=== PATIENT | male | born 1970 | race Caucasian/White ===

== ENCOUNTER 2022-01-23 09:48 | Inpatient (IN) | payer MEDICAID, OTHER ==
[~2022-01-23] VITALS: Ht 177.8 cm; Wt 132.0 kg
[2022-01-23 11:01] LABS: EOSINOPHILS % 0.3 % (0.0-5.0); HEMATOCRIT. 24.6 % (42.0-52.0); HEMOGLOBIN. 7.2 g/dL (14.0-18.0); LYMPHOCYTES % 11.3 % (20.0-50.0); MEAN CORPUSCULAR HEMOGLOBIN 20.8 pg (28.0-32.0); MEAN CORPUSCULAR VOLUME 70.7 fL (80.0-94.0); MEAN PLATELET VOLUME 9.9 fl (7.4-10.4); MONOCYTES % 14.3 % (2.0-8.0); NEUTROPHILS % 73.1 % (40.0-76.0); PLATELET 87 x1000/uL (130-400); RED BLOOD CELL COUNT 3.48 mill/uL (4.7-6.1); RED CELL DISTRIBUTION WIDTH 19.4 % (11.6-14.6)
[2022-01-23 11:04] LABS: CHLORIDE 100 mEq/L (98-107); CLARITY URINE CLOUDY (CLEAR); COLOR URINE ORANGE (YELLOW); KETONES URINE TRACE (NEGATIVE); LEUKOCYTE ESTERASE URINE 2+ (NEGATIVE); NITRITE URINE POSITIVE (NEGATIVE); OCCULT BLOOD URINE TRACE (NEGATIVE); PROTEIN URINE 2+ (NEGATIVE); SPECIFIC GRAVITY URINE 1.033 (1.005-1.030)
[2022-01-23 11:18] LABS: INR 1.1; PROTHROMBIN TIME 11.5 sec (9.6-11.0)
[2022-01-23] MEDS ORDERED: CEFTRIAXONE 1 G PREMIX 50 ML IV ONE (12:30)
[2022-01-23] MEDS: IBUPROFEN 200MG TABLET PO NR ×2 (14:10→18:37)
[2022-01-23] MEDS ORDERED: CLONIDINE 0.1MG TABLET PO PRN (14:30)
[2022-01-23] MEDS ORDERED: ONDANSETRON HCL 4MG/2ML INJ IV PRN (14:30)
[2022-01-23] MEDS ORDERED: ACETAMINOPHEN 325MG TABLET PO PRN (14:30)
[2022-01-23] MEDS ORDERED: CEFTRIAXONE 1 G PREMIX 50 ML IV SCH (14:30)
[2022-01-23] MEDS ORDERED: MAGNESIUM/ALUMINUM HYDROXIDE/SIMETHICONE 30ML UDC PO PRN (14:30)
[2022-01-23] MEDS ORDERED: DEXTROSE 50% WATER 50ML SYRINGE IV PRN ×2 (14:30)
[2022-01-23 16:00] VITALS: BP 104/67
[2022-01-23] MEDS ORDERED: PANTOPRAZOLE SODIUM 40 MG/VIAL IV SCH (17:00)
[2022-01-23] MEDS: BLOOD SUGAR DIAGNOSTIC STRIP TEST SCH ×2 (17:20→22:00)
[2022-01-23 18:24] LABS: TOTAL IRON BINDING CAPACITY 525 ug/dL (250-450)
[2022-01-23] MEDS: INSULIN LISPRO 100 UNITS/ML SUBCUT SCH ×2 (18:33→22:09)
[2022-01-23] MEDS: PANTOPRAZOLE SODIUM 40 MG/VIAL IV SCH (18:34)
[2022-01-23] MEDS: SODIUM CHLORIDE 0.9% 1,000 ML IV SCH (18:35)
[2022-01-23 18:41] LABS: FERRITIN 11 ng/mL (22-322)
[2022-01-23 18:50] LABS: FOLIC ACID (FOLATE) SERUM >20 ng/mL ng/mL (>5.38); VITAMIN B12 SERUM 490 pg/mL (211-911)
[2022-01-23 18:52] LABS: HEPATITIS B SURFACE ANTIGEN NEGATIVE
[2022-01-23] MEDS: OCTREOTIDE 1,000 MCG in SODIUM CHLORIDE 0.9% 98 ML IV SCH (19:41)
[2022-01-23 20:00] VITALS: BP 102/54
[2022-01-24] VITALS (15 sets, daily range): BP systolic 107–136; BP diastolic 63–92
[2022-01-24] MEDS: HYDROCODONE/ACETAMINOPHEN 5/325MG TABLET PO PRN (01:56)
[2022-01-24 03:29] LABS: HEMATOCRIT. 24.4 % (42.0-52.0); MEAN CORPUSCULAR HEMOGLOBIN 20.8 pg (28.0-32.0); MEAN CORPUSCULAR VOLUME 72.2 fL (80.0-94.0); MEAN PLATELET VOLUME 8.6 fl (7.4-10.4); PLATELET 68 x1000/uL (130-400); RED BLOOD CELL COUNT 3.38 mill/uL (4.7-6.1); RED CELL DISTRIBUTION WIDTH 19.4 % (11.6-14.6)
[2022-01-24 03:36] LABS: CHLORIDE 104 mEq/L (98-107)
[2022-01-24 03:43] LABS: PHOSPHORUS 2.6 mg/dL (2.5-4.9)
[2022-01-24 03:59] LABS: INR 1.1; PROTHROMBIN TIME 11.8 sec (9.6-11.0)
[2022-01-24] MEDS: SODIUM CHLORIDE 0.9% 1,000 ML IV SCH ×2 (04:23→17:10)
[2022-01-24] MEDS: BLOOD SUGAR DIAGNOSTIC STRIP TEST SCH ×4 (06:23→20:49)
[2022-01-24 07:02] LABS: ATYPICAL LYMPHOCYTES 2
[2022-01-24 07:03] LABS: PLATELET ESTIMATE DECREASED
[2022-01-24] MEDS: INSULIN LISPRO 100 UNITS/ML SUBCUT SCH ×4 (07:50→21:46)
[2022-01-24] MEDS: PANTOPRAZOLE SODIUM 40 MG/VIAL IV SCH ×2 (09:09→17:00)
[2022-01-24] MEDS: CEFTRIAXONE 1,000 MG in DEXTROSE 5% WATER 50 ML IV SCH (13:08)
[2022-01-24] MEDS ORDERED: NALOXONE HCL 0.4MG/ML VIAL IV PRN (15:45)
[2022-01-24] MEDS ORDERED: POTASSIUM CHLORIDE 20MEQ/PACKET PO NR (15:45)
[2022-01-24] MEDS: IRON SUCROSE COMPLEX 100 MG/5 ML ML IV SCH (22:29)
[2022-01-24] MEDS: OCTREOTIDE 1,000 MCG in SODIUM CHLORIDE 0.9% 98 ML IV SCH (22:29)
[2022-01-25 03:18] LABS: HEMATOCRIT. 27.2 % (42.0-52.0); HEMOGLOBIN. 8.2 g/dL (14.0-18.0); MEAN CORPUSCULAR HEMOGLOBIN 22.1 pg (28.0-32.0); MEAN CORPUSCULAR VOLUME 73.8 fL (80.0-94.0); MEAN PLATELET VOLUME 8.7 fl (7.4-10.4); PLATELET 71 x1000/uL (130-400); RED BLOOD CELL COUNT 3.69 mill/uL (4.7-6.1); RED CELL DISTRIBUTION WIDTH 20.6 % (11.6-14.6)
[2022-01-25 03:28] LABS: INR 1.1; PROTHROMBIN TIME 12.1 sec (9.6-11.0)
[2022-01-25 03:39] LABS: CHLORIDE 106 mEq/L (98-107)
[2022-01-25 03:44] LABS: PHOSPHORUS 2.3 mg/dL (2.5-4.9)
[2022-01-25 03:55] VITALS: BP_SYST 132
[2022-01-25 05:04] VITALS: BP 127/77
[2022-01-25] MEDS: BLOOD SUGAR DIAGNOSTIC STRIP TEST SCH ×4 (06:15→21:32)
[2022-01-25] MEDS: SODIUM CHLORIDE 0.9% 1,000 ML IV SCH (06:33)
[2022-01-25] MEDS ORDERED: LIDOCAINE HCL 1% 50ML VIAL (10MG/ML) ONE (07:50)
[2022-01-25] MEDS: INSULIN LISPRO 100 UNITS/ML SUBCUT SCH ×4 (07:50→21:44)
[2022-01-25 08:00] VITALS: BP 141/91
[2022-01-25] MEDS: PANTOPRAZOLE SODIUM 40 MG/VIAL IV SCH ×2 (09:51→18:51)
[2022-01-25] MEDS ORDERED: PROPOFOL 200MG/20ML VIAL IV ONE (12:13)
[2022-01-25] MEDS ORDERED: MIDAZOLAM HCL 2 MG/2 ML VIAL ONE (12:18)
[2022-01-25] MEDS ORDERED: ONDANSETRON HCL 4MG/2ML INJ ONE (12:57)
[2022-01-25] MEDS ORDERED: DEXAMETHASONE 4MG/ML 1ML VIAL ONE (12:57)
[2022-01-25] MEDS ORDERED: FENTANYL CITRATE/PF 50MCG/ML 2ML VIAL IV PRN (13:45)
[2022-01-25 14:47] LABS: PLATELET ESTIMATE DECREASED
[2022-01-25] MEDS: OCTREOTIDE 1,000 MCG in SODIUM CHLORIDE 0.9% 98 ML IV SCH (15:41)
[2022-01-25] MEDS: CEFTRIAXONE 1,000 MG in DEXTROSE 5% WATER 50 ML IV SCH (15:41)
[2022-01-25 16:00] VITALS: BP 150/96
[2022-01-25] MEDS: SUCRALFATE 1 G/10 ML UDC PO SCH ×2 (18:51→21:44)
[2022-01-25] MEDS: IRON SUCROSE COMPLEX 100 MG/5 ML ML IV SCH (18:52)
[2022-01-25 20:00] VITALS: BP 146/72
[2022-01-26] VITALS: BP 131/85
[2022-01-26] MEDS: HYDROCODONE/ACETAMINOPHEN 5/325MG TABLET PO PRN (00:10)
[2022-01-26 04:00] VITALS: BP 122/83
[2022-01-26 06:56] LABS: CHLORIDE 103 mEq/L (98-107)
[2022-01-26 06:58] LABS: BASOPHILS % 0.6 % (0.0-2.0); EOSINOPHILS % 0.1 % (0.0-5.0); HEMATOCRIT. 27.2 % (42.0-52.0); LYMPHOCYTES % 16.7 % (20.0-50.0); MEAN CORPUSCULAR HEMOGLOBIN 22.1 pg (28.0-32.0); MEAN CORPUSCULAR VOLUME 74.9 fL (80.0-94.0); MEAN PLATELET VOLUME 8.7 fl (7.4-10.4); MONOCYTES % 9.4 % (2.0-8.0); NEUTROPHILS % 73.2 % (40.0-76.0); PLATELET 80 x1000/uL (130-400); RED BLOOD CELL COUNT 3.64 mill/uL (4.7-6.1); RED CELL DISTRIBUTION WIDTH 21.6 % (11.6-14.6)
[2022-01-26] MEDS: BLOOD SUGAR DIAGNOSTIC STRIP TEST SCH ×4 (07:20→21:54)
[2022-01-26 08:00] VITALS: BP 118/76
[2022-01-26] MEDS: PANTOPRAZOLE SODIUM 40 MG/VIAL IV SCH ×2 (09:03→17:55)
[2022-01-26] MEDS: SUCRALFATE 1 G/10 ML UDC PO SCH ×4 (09:03→21:49)
[2022-01-26] MEDS: INSULIN LISPRO 100 UNITS/ML SUBCUT SCH ×4 (09:04→21:52)
[2022-01-26] MEDS: SODIUM CHLORIDE 0.9% 1,000 ML IV SCH (09:10)
[2022-01-26 11:32] VITALS: BP 110/71
[2022-01-26] MEDS ORDERED: OCTREOTIDE 1,000 MCG in SODIUM CHLORIDE 0.9% 98 ML IV SCH (12:00)
[2022-01-26] MEDS: CEFTRIAXONE 1,000 MG in DEXTROSE 5% WATER 50 ML IV SCH (13:40)
[2022-01-26] MEDS ORDERED: SUCR1TAB30 MT (14:00)
[2022-01-26] MEDS ORDERED: FERR324T4 MT (14:00)
[2022-01-26] MEDS ORDERED: PANT40TA51 MT (14:00)
[2022-01-26] MEDS ORDERED: INSU100I28 SQ (14:04)
[2022-01-26] MEDS ORDERED: NA PHOS,M-B/NA PHOS,DI-BA ENEMA 118ML PR NR (14:15)
[2022-01-26] MEDS: IRON SUCROSE COMPLEX 100 MG/5 ML ML IV SCH (15:37)
[2022-01-26] MEDS: INSULIN GLARGINE 100 UNITS/ML SUBCUT SCH ×2 (15:37→21:52)
[2022-01-26 16:00] VITALS: BP 106/58
[2022-01-26 20:00] VITALS: BP 131/81
[2022-01-27] VITALS: BP 135/84
[2022-01-27 04:00] VITALS: BP 125/78
[2022-01-27 06:43] LABS: HEMATOCRIT. 30.1 % (42.0-52.0); HEMOGLOBIN. 9.1 g/dL (14.0-18.0); MEAN CORPUSCULAR HEMOGLOBIN 22.6 pg (28.0-32.0); MEAN CORPUSCULAR VOLUME 75.1 fL (80.0-94.0); MEAN PLATELET VOLUME 8.9 fl (7.4-10.4); PLATELET 85 x1000/uL (130-400); RED BLOOD CELL COUNT 4.01 mill/uL (4.7-6.1); RED CELL DISTRIBUTION WIDTH 22.1 % (11.6-14.6)
[2022-01-27] MEDS: BLOOD SUGAR DIAGNOSTIC STRIP TEST SCH ×2 (06:50→11:45)
[2022-01-27 07:22] LABS: CHLORIDE 104 mEq/L (98-107)
[2022-01-27] MEDS: INSULIN LISPRO 100 UNITS/ML SUBCUT SCH ×2 (07:50→12:22)
[2022-01-27 08:00] VITALS: BP 104/72
[2022-01-27] MEDS ORDERED: BISACODYL 10MG SUPP PR SCH (09:00)
[2022-01-27] MEDS: PANTOPRAZOLE SODIUM 40 MG/VIAL IV SCH (09:25)
[2022-01-27] MEDS: SUCRALFATE 1 G/10 ML UDC PO SCH ×2 (09:25→12:24)
[2022-01-27] MEDS: INSULIN GLARGINE 100 UNITS/ML SUBCUT SCH (09:33)
[2022-01-27 11:54] LABS: PLATELET ESTIMATE DECREASED
[2022-01-27 12:00] VITALS: BP 131/88
[2022-01-27] MEDS: SODIUM CHLORIDE 0.9% 1,000 ML IV SCH (12:24)
[2022-01-27 13:23] VITALS: BP 131/88
[2022-01-27] MEDS ORDERED: POTASSIUM CHLORIDE 20MEQ TABLET SR PO NR (13:45)
[2022-01-27] MEDS: CEFTRIAXONE 1,000 MG in DEXTROSE 5% WATER 50 ML IV SCH (14:00)
== END 2022-01-27 15:00 | disposition home or self-care (01) | DRG 242 ==
LOC: ER 10:27 → 6WST 13:33 → EDBEDREQTM 13:35 → EDBEDREQ 13:35 → ENRESERV 14:03
PROVIDERS: ADMIT Internal Medicine; ATTEND Internal Medicine
PROC: 30233N1 Transfusion of Nonautologous Red Blood Cells into Peripheral Vein, Percutaneous Approach (ICD-10-PCS; principal; 2022-01-24)
PROC: 0DB68ZX Excision of Stomach, Via Natural or Artificial Opening Endoscopic, Diagnostic (ICD-10-PCS; 2022-01-25)
PROC: 06L38CZ Occlusion of Esophageal Vein with Extraluminal Device, Via Natural or Artificial Opening Endoscopic (ICD-10-PCS; 2022-01-25)
DX: I85.01 Esophageal varices with bleeding (principal); D69.6 Thrombocytopenia, unspecified; K76.6 Portal hypertension; E87.1 Hypo-osmolality and hyponatremia; D50.9 Iron deficiency anemia, unspecified; E11.65 Type 2 diabetes mellitus with hyperglycemia; K76.0 Fatty (change of) liver, not elsewhere classified; K29.71 Gastritis, unspecified, with bleeding; F10.21 Alcohol dependence, in remission; I10 Essential (primary) hypertension; N39.0 Urinary tract infection, site not specified; K42.9 Umbilical hernia without obstruction or gangrene; J45.909 Unspecified asthma, uncomplicated; K31.89 Other diseases of stomach and duodenum; K44.9 Diaphragmatic hernia without obstruction or gangrene; K76.9 Liver disease, unspecified; K59.00 Constipation, unspecified; K22.89 Other specified disease of esophagus
CPT/HCPCS: 36415; 76700; 80048; 80053; 80076; 81003; 82270; 82607; 82728; 82746; 82962; 83036; 83540; 83550; 83605; 83735; 84100; 84484; 85018; 85025; 85044; 86705; 86709; 86803; 86850; 86900; 86920; 87340; 87426; 88305; 88312; 88313; 93005; 93970; 99291; C9113; J0696; J1100; J1815; J2250; J2354; J2405; J2704; J3010; J3490; J7050; J7060; P9016